=== PATIENT | female | born 1930 | race Caucasian/White ===

== ENCOUNTER 2018-08-10 15:56 | Emergency (ER) | payer OTHER ==
[~2018-08-10] VITALS: Ht 162.6 cm; Wt 62.1 kg
[~2018-08-10 15:56] MED LIST: ASPIRIN EC81 M1 PO; CEFTIN 250 MG250 MG PO; HYDROCODON-ACE1 EAC7 PO; LOTREL 5-10 MG1 EACH PO; MACRODANTIN50 MG PO; PREDNISONE 10 M10 M1 PO; PRILOSEC 20 MG20 MG PO; ZIAC 5-6.25 MG1 EACH PO
[2018-08-10] MEDS ORDERED: BACTRIM DS TAB1 EACH PO (16:40)
[2018-08-10 16:58] VITALS: BP 167/70
== END 2018-08-10 16:55 | disposition home or self-care (01) ==
LOC: ER 15:56
DX: L03.115 Cellulitis of right lower limb (principal); Z91.018 Allergy to other foods; Z88.5 Allergy status to narcotic agent; Z88.0 Allergy status to penicillin; Z90.710 Acquired absence of both cervix and uterus; I10 Essential (primary) hypertension; K21.9 Gastro-esophageal reflux disease without esophagitis